=== PATIENT | female | born 1975 | race Caucasian/White ===

== ENCOUNTER 2024-01-29 00:14 | Emergency (ER) | payer SELFPAY ==
[~2024-01-29] VITALS: Ht 175.3 cm; Wt 99.1 kg
[2024-01-29 00:38] LABS: BASOPHILS 0.5 % (0-2); EOSINOPHILS 2.2 % (0-6); HEMATOCRIT 41.9 % (35.0-50.0); HEMOGLOBIN 14.1 g/dL (12.0-18.0); LYMPHOCYTES 36.4 % (24-44); MCHC 33.7 g/dl (30-36); MONOCYTES 9.8 % (0-12); NEUTROPHILS 51.1 % (39-80); PLATELET COUNT 338 K/uL (140-440); RDW 13.3 (10.5-15.0)
[2024-01-29 00:39] LABS: BILIRUBIN, URINE NEGATIVE (negative); BLOOD/HGB, URINE NEGATIVE (Negative); KETONE, URINE NEGATIVE (Negative); LEUK ESTERASE, URINE NEGATIVE (negative); NITRITE, URINE NEGATIVE (negative)
[2024-01-29] MEDS ORDERED: OMEPRAZOLE20 MG PO (00:43)
[2024-01-29] MEDS ORDERED: BUSPIRONE HCL10 MG PO (00:43)
[2024-01-29] MEDS ORDERED: GEODON20 MG PO (00:43)
[2024-01-29] MEDS ORDERED: ATIVAN2 MG (00:44)
[2024-01-29] MEDS ORDERED: VENTOLIN HFA18 GM INH (00:44)
[2024-01-29] MEDS ORDERED: QVAR REDIHALE10.6 GM IH (00:44)
[2024-01-29] MEDS ORDERED: FLONASE ALLERG9.9 ML (00:45)
[2024-01-29 00:48] LABS: ALBUMIN 3.6 g/dL (3.4-5.0); ALBUMIN/GLOBULIN RATIO 1.03 (1.1-2.4); ANION GAP 11.6 (7-21); BILIRUBIN, TOTAL 0.7 ng/dL (0.2-1.0); BUN/CREATININE RATIO 7.47 (6.0-28.6); CALCIUM 9.5 mg/dL (8.5-10.1); CREATININE, SERUM 1.07 mg/dL (0.55-1.02); POTASSIUM 3.6 mmol/L (3.5-5.1); PROTEIN, TOTAL 7.1 g/dL (6.4-8.2)
[2024-01-29] MEDS ORDERED: METRONIDAZOLE500 MG PO (02:25)
[2024-01-29] MEDS ORDERED: CIPRO500 MG PO (02:25)
[2024-01-29] MEDS ORDERED: CIPROFLOXACIN 500 MG TAB PO ONE (02:30)
[2024-01-29] MEDS ORDERED: metroNIDAZOLE 250 MG HOME.PACK PO ONE (02:30)
[2024-01-29 02:45] VITALS: BP 112/76
== END 2024-01-29 02:45 | disposition home or self-care (01) ==
LOC: ED 00:14
PROVIDERS: Emergency Medicine
DX: K57.32 Diverticulitis of large intestine without perforation or abscess without bleeding (principal); Z79.51 Long term (current) use of inhaled steroids; Z79.899 Other long term (current) drug therapy; Z91.018 Allergy to other foods; Z88.5 Allergy status to narcotic agent; Z91.030 Bee allergy status; Z88.8 Allergy status to other drugs, medicaments and biological substances
CPT/HCPCS: 36415; 74177; 80053; 81003; 83690; 85025; 99284-25; Q9967

== ENCOUNTER 2024-05-15 06:52 | Emergency (ER) | payer OTHER ==
[~2024-05-15] VITALS: Ht 175.3 cm; Wt 101.0 kg
[~2024-05-15 06:52] MED LIST: ATIVAN2 MG; BUSPIRONE HCL10 MG PO; CIPRO500 MG PO; FLONASE ALLERG9.9 ML; GEODON20 MG PO; METRONIDAZOLE500 MG PO; OMEPRAZOLE20 MG PO; QVAR REDIHALE10.6 GM IH; VENTOLIN HFA18 GM INH
[2024-05-15] MEDS ORDERED: LIDOCAINE HCL 4% 1 EACH PATCH TD ONE (07:30)
[2024-05-15] MEDS ORDERED: ondansetron HCL 4 MG/2 ML VIAL IV ONE (07:30)
[2024-05-15] MEDS ORDERED: KETOROLAC TROMETHAMINE 30 MG/ML VIAL IV ONE (07:30)
[2024-05-15] MEDS ORDERED: SODIUM CHLORIDE 0.9% 1,000 ML IV PRN (07:45)
[2024-05-15 08:08] LABS: BASOPHILS 1.4 % (0-2); EOSINOPHILS 1.5 % (0-6); HEMATOCRIT 42.9 % (35.0-50.0); HEMOGLOBIN 14.7 g/dL (12.0-18.0); LYMPHOCYTES 35.2 % (24-44); MCH 30.7 (27-36); MCHC 34.4 g/dl (30-36); MCV 89.3 fl (81-99); MONOCYTES 9.5 % (0-12); NEUTROPHILS 52.4 % (39-80); PLATELET COUNT 337 K/uL (140-440); RBC 4.81 M/ul (4.3-5.7); RDW 13.5 (10.5-15.0)
[2024-05-15 08:18] LABS: BILIRUBIN, URINE NEGATIVE (negative); BLOOD/HGB, URINE NEGATIVE (Negative); KETONE, URINE NEGATIVE (Negative); LEUK ESTERASE, URINE NEGATIVE (negative); NITRITE, URINE NEGATIVE (negative)
[2024-05-15 08:22] LABS: ALBUMIN 3.9 g/dL (3.4-5.0); ALBUMIN/GLOBULIN RATIO 1.03 (1.1-2.4); ANION GAP 11.2 (7-21); BILIRUBIN, TOTAL 0.3 ng/dL (0.2-1.0); BUN/CREATININE RATIO 8.6 (6.0-28.6); CALCIUM 9.7 mg/dL (8.5-10.1); CREATININE, SERUM 0.93 mg/dL (0.55-1.02); POTASSIUM 4.2 mmol/L (3.5-5.1); PROTEIN, TOTAL 7.7 g/dL (6.4-8.2)
[2024-05-15 10:15] VITALS: BP 124/85
[2024-05-15] MEDS ORDERED: LIDOCAINE PATCH REMOVAL 1 EA TD SCH (21:00)
== END 2024-05-15 10:15 | disposition home or self-care (01) ==
LOC: ED 06:52
PROVIDERS: Emergency Medicine
DX: M54.50 Low back pain, unspecified (principal); R10.32 Left lower quadrant pain; K57.30 Diverticulosis of large intestine without perforation or abscess without bleeding; K21.9 Gastro-esophageal reflux disease without esophagitis; Z91.030 Bee allergy status; Z91.018 Allergy to other foods; Z88.5 Allergy status to narcotic agent; Z88.8 Allergy status to other drugs, medicaments and biological substances; Z79.899 Other long term (current) drug therapy
CPT/HCPCS: 36415; 74177; 80053; 81003; 83690; 85025; 96375; 99284-25; A9270; J1885; J2405; J7030; Q9967

== ENCOUNTER 2024-12-20 21:49 | Emergency (ER) | payer OTHER ==
[~2024-12-20] VITALS: Ht 175.3 cm; Wt 111.4 kg
[2024-12-20] MEDS ORDERED: VITAMIN D21250 MCG (22:09)
[2024-12-20] MEDS ORDERED: PROGESTERONE100 MG PO (22:10)
[2024-12-20] MEDS ORDERED: ESTRADIOL1 MG PO (22:10)
[2024-12-20 22:28] LABS: BASOPHILS 1.1 % (0.1-1.2); EOSINOPHILS 1.8 % (0.7-5.8); LYMPHOCYTES 39.6 % (19.3-51.7); MCH 29.6 PG (25.6-32.2); MCHC 33.5 g/dL (32.2-35.5); MCV 88.4 fL (79.4-94.8); MONOCYTES 11.6 % (4.7-12.5); NEUTROPHILS 45.6 % (34.0-71.1); RBC 4.49 M/uL (3.93-5.22)
[2024-12-20 22:28] LABS: BLOOD/HGB, URINE NEGATIVE (Negative); KETONE, URINE NEGATIVE (Negative); LEUK ESTERASE, URINE NEGATIVE (negative); NITRITE, URINE NEGATIVE (negative)
[2024-12-20 22:44] LABS: ALT (SGPT) 23.0 U/L (14-59); AST (SGOT) 19.0 U/L (15-37); GLOMERULAR FILTRATION RATE,EST 69.0 mL/min (>60); PROTEIN, TOTAL 6.6 g/dL (6.4-8.2); UREA NITROGEN 9.0 mg/dL (7-18)
[2024-12-20] MEDS ORDERED: KETOROLAC TROMETHAMINE 30 MG/ML VIAL IV ONE (23:00)
[2024-12-20] MEDS ORDERED: AMOX TR-K CLV1 EAC1 PO (23:25)
[2024-12-20] MEDS ORDERED: AMOXICILLIN/CLAVULANATE K 875 MG HOME.PACK PO ONE (23:30)
[2024-12-20 23:47] VITALS: BP 113/73
== END 2024-12-20 23:46 | disposition home or self-care (01) ==
LOC: ED 21:49
PROVIDERS: Internal Medicine
DX: K57.92 Diverticulitis of intestine, part unspecified, without perforation or abscess without bleeding (principal); K21.9 Gastro-esophageal reflux disease without esophagitis; G43.909 Migraine, unspecified, not intractable, without status migrainosus; Z79.51 Long term (current) use of inhaled steroids; Z79.899 Other long term (current) drug therapy; Z88.5 Allergy status to narcotic agent; Z88.8 Allergy status to other drugs, medicaments and biological substances; Z91.018 Allergy to other foods; Z91.030 Bee allergy status
CPT/HCPCS: 36415; 80053; 81003; 83690; 85025; 96374; 99284-25; J1885

== ENCOUNTER 2024-12-24 12:05 | Emergency (ER) | payer OTHER ==
[~2024-12-24] VITALS: Ht 170.2 cm; Wt 111.0 kg
[~2024-12-24 12:05] MED LIST changes: +AMOX TR-K CLV1 EAC1 PO; +ESTRADIOL1 MG PO; +PROGESTERONE100 MG PO; +VITAMIN D21250 MCG
--- OUTSIDE RECORDS SUMMARY | 2024-12-24 12:12 | XMS ---
PreManage Notification: MYNOR RAMOS Security Hands Hanger Events No recent Security Events currently on file CRITERIA MET - [facility] - 2 Visits in 30 Days CARE PROVIDERS -, [facility] Dentist: Lead Section Supervisor Current [place] PHONE: [phone] [facility]: [facility] Current FAMILY PHONE: [phone] Care Guidelines exist for the following facilities: Tor Maykel ( 10/25/2019 ) Nina VISIT COUNT (12 MO.) 4 [facility] [place]. TOTAL 5 NOTE: Visits indicate total known visits. 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 - Lower abdominal pain, unspecified - Migraine, unspecified, not intractable, without status migrainosus - Other remote computer terminal operator (current) drug therapy 05/15/2024 06:52 [facility] TYPE: Emergency COMPLAINT: - BACK PAIN DIAGNOSES: - Allergy status to narcotic agent - Allergy status to other drugs, medicaments and biological substances - Allergy to other foods - Bee allergy status - Diverticulosis of large intestine without perforation or abscess without bleeding - Dorsalgia, unspecified - Gastro-esophageal reflux disease without esophagitis - Left lower quadrant pain - Low back pain, unspecified - Other fdc (current) drug therapy - Other specified diseases of anus and rectum 02/05/2024 13:07 [facility] TYPE: Emergency COMPLAINT: - Abdominal pain_Stomach Pain/Headache/Black stool - GERD WITHOUT ESOPHAGITIS - NAUSEA WITH VOMITING UNSPECIFIED - UNSPECIFIED ABDOMINAL PAIN DIAGNOSES: 0. Unspecified abdominal pain 1. Unspecified abdominal pain 5. Adverse effect of other systemic antibiotics, initial encounter 6. Personal history of nicotine dependence 01/29/2024 00:[address] [facility] [place] TYPE: Emergency COMPLAINT: - ABD PAIN DIAGNOSES: - Allergy status to narcotic agent - Allergy status to other drugs, medicaments and biological substances - Allergy to other foods - Bee allergy status - Diverticulitis of large intestine without perforation or abscess without bleeding - halfway (current) use of inhaled steroids - Lower abdominal pain, unspecified - Other fdc (current) drug therapy INPATIENT VISIT TRACKING (12 MO.) No inpatient visits to display in this time frame [email or web address]
[2024-12-24 13:44] LABS: BASOPHILS 1.3 % (0.1-1.2); EOSINOPHILS 1.5 % (0.7-5.8); LYMPHOCYTES 42.2 % (19.3-51.7); MCH 29.6 PG (25.6-32.2); MCHC 33.3 g/dL (32.2-35.5); MCV 88.8 fL (79.4-94.8); MONOCYTES 9.6 % (4.7-12.5); NEUTROPHILS 45.0 % (34.0-71.1); RBC 4.83 M/uL (3.93-5.22)
[2024-12-24 14:05] LABS: ALT (SGPT) 21.0 U/L (14-59); AST (SGOT) 22.0 U/L (15-37); GLOMERULAR FILTRATION RATE,EST 87.0 mL/min (>60); PROTEIN, TOTAL 7.0 g/dL (6.4-8.2); UREA NITROGEN 10.0 mg/dL (7-18)
[2024-12-24 14:11] LABS: BLOOD/HGB, URINE NEGATIVE (Negative); KETONE, URINE NEGATIVE (Negative); LEUK ESTERASE, URINE NEGATIVE (negative); NITRITE, URINE NEGATIVE (negative)
[2024-12-24] MEDS ORDERED: AMOX TR-K CLV1 EAC1 PO (16:51)
[2024-12-24 17:00] VITALS: BP 127/99
== END 2024-12-24 16:58 | disposition home or self-care (01) ==
LOC: ED 12:05
PROVIDERS: Emergency Medicine
DX: K57.32 Diverticulitis of large intestine without perforation or abscess without bleeding (principal); M54.50 Low back pain, unspecified; K21.9 Gastro-esophageal reflux disease without esophagitis; G43.909 Migraine, unspecified, not intractable, without status migrainosus; Z88.6 Allergy status to analgesic agent; Z88.5 Allergy status to narcotic agent; Z88.8 Allergy status to other drugs, medicaments and biological substances; Z91.030 Bee allergy status; Z91.018 Allergy to other foods; Z79.2 Long term (current) use of antibiotics; Z79.51 Long term (current) use of inhaled steroids; Z79.899 Other long term (current) drug therapy
CPT/HCPCS: 36415; 74177; 80053; 81003; 83690; 85025; 99284-25; Q9967